=== PATIENT | female | born 1960 | race Caucasian/White ===

== ENCOUNTER 2020-12-20 15:19 | Emergency (ER) | payer MEDICARE, SELFPAY ==
[2020-12-20 15:22] VITALS: BP 101/62; PULSE 60; RESP 18; TEMP 35.4; O2SAT 94; BMI 49.1
--- NOTE | 2020-12-20 15:48 | CT_ITS ---
STUDY: CT ABDOMEN AND PELVIS WITHOUT CONTRAST REASON FOR EXAM: Female, 60 years old. FELL OFF TOILET, HIT SINK, LOW BACK PAIN. RADIATION DOSAGE (If Supplied By Facility): CTDIvol = ( 22.45 ) mGy, DLP = ( 1099.25 ) mGycm TECHNIQUE: Transaxial images were obtained from the dome of the diaphragm to the symphysis pubis without oral contrast, and without intravenous contrast. Sagittal and coronal images were reconstructed. Individualized dose optimization techniques were used for this CT. COMPARISON: None. FINDINGS: The visualized lung bases are unremarkable. The visualized portions of the heart are within normal limits. There is elongation of the right lobe of the liver which may be normal developmental variant. Attenuation is homogeneous without mass or bile duct dilatation. Gallbladder has been removed surgically.. Normal spleen. Normal pancreas. Normal bilateral adrenal glands. There is a tiny nonobstructing calculus in each kidney. No hydronephrosis or mass. Normal visualized stomach. Normal small intestine. Diffuse diverticular disease of the colon without evidence for acute diverticulitis. Appendix not visualized which may be consistent with prior appendectomy.. Minor atherosclerotic changes of the aorta without evidence for aneurysm. Normal inferior vena cava. Normal retroperitoneum. Normal urinary bladder. There is soft tissue swelling posterior to the spinous process of L2.. Lumbar spine demonstrates degenerative changes. No evidence for acute fracture. Postop change status post bilateral laminectomy and posterior fusion at L4-5 CT/Abdomen/Pelvis without Cont IMPRESSION: Soft tissue swelling in the back posterior to the spinous process of L2 Postsurgical changes at L4-5. Spondylosis of the lumbar spine without evidence for acute fracture Bilateral nephrolithiasis without evidence for hydronephrosis or ureteral calculus Diverticular disease of the colon without evidence for acute diverticulitis Status post cholecystectomy and appendectomy Electronically Signed: Pierre Mitchell MD at 16:54 EST , Service support ,
--- NOTE | 2020-12-20 15:52 | ED.DCSUM_ITS ---
- ER Visit Summary Date of Service: 12/20/20 Chief Complaint: Fall History of Present Illness: The patient is a 60 F who presents after a fall that occurred today. Patient states she was trying to step up onto her toilet seat to close a window. Patient states she is left and fell backwards. Patient states her back fell into the bathroom sink. Patient states her pain is worse with any movement. Patient states whenever she attempts to move she has spasms in her low back. Patient denies any paresthesias or weakness. Patient describes her pain as aching. Patient denies any head injury or loss of consciousness. Patient denies any pain in her extremities. Physical Examination: Vital signs are stable. Patient is afebrile. Patient is in no acute distress. Oral mucosa is pink and moist. Neck is supple. Trachea is midline. There is no JVD. Heart was regular rate and rhythm. Lungs are clear and equal bilaterally. Abdomen is soft. Bowel sounds are normal. There is mild tenderness over the flank areas bilaterally. There is no rebound or guarding noted. Musculoskeletal exam reveals tenderness over the lumbar paraspinal muscles. There is some mild midline tenderness. There is no bony crepitance or step-off. Range of motion was limited in all motion secondary to pain. Strength is 5/5 bilateral in the upper and lower extremities. There are no sensory deficits noted. Test Results: X-rays of the lumbar spine were obtained. There are 3 views. On my interpretation, there is no acute fracture or spondylolisthesis. There are degenerative changes noted. There are screws noted to be in place. There is no loosening or displacement of the screws. Radiologist also interpreted the x- rays and agrees. CBC was within normal limits. Comprehensive metabolic profile was within normal limits. CT scan of the abdomen and pelvis was obtained. There is soft tissue swelling posterior to the spinous process of L2. There is no acute fracture. There is bilateral nephrolithiasis but no ureteral calculus. There is diverticular disease but no evidence of diverticulitis. This was interpreted by the radiologist and reviewed by myself. Urinalysis was ordered and is pending. Emergency Department Course and Treatment: Patient was given a dose of morphine and Valium here. Patient was given prescriptions for [place] and Valium. Patient was instructed to use ice to the area. Patient was instructed to follow-up with her primary care physician in 5 to 7 days. Patient understood and was agreeable with the plan. All questions were answered. Disposition: Discharge home Impression: Lumbar contusion This note was generated with [employer] dictation software. It may contain incorrect words, spelling, and punctuation that were not noted in review of the chart prior to signing ED Disposition - Plan for ED Patient: Disposition: Home or Assisted Living Diagnosis: Lumbar contusion Instructions: ED Back Contusion Prescriptions: Hydrocodone Bitart/Apap 5-325 [[place] 5MG-325MG] 1 tab PO Q6H PRN PRN 3 Days #10 tab PRN Reason: Pain Prescription Printed Diazepam [Valium] 5 mg PO Q8 PRN #10 tab PRN Reason: Muscle Spasm Prescription Printed Referrals: Rome Shannon DO [Primary Care Provider] - 5-7 Days
[2020-12-20] MEDS: diazePAM 5 MG Tablet PO (16:04)
[2020-12-20] MEDS: Morphine 4 MG/ML Syringe IV ×2 (16:04→17:18)
[2020-12-20 16:23] LABS: Absolute Lymphocyte Count 1.87 X10^3/uL (0.83-4.51); Absolute Neutrophil Count 6.7 X10^3/uL (2.0-7.7); Basophil# 0.05 X10^3/uL; Basophil% 0.5 % (0-1); Eosinophil# 0.99 X10^3/uL; Eosinophils% 9.5 % (0-5); Hematocrit 45.4 % (37-47); Hemoglobin 14.8 g/dL (12.0-15.0); Lymphocyte # 1.87 X10^3/ul (4.0); Lymphocyte % 17.9 % (19-41); Mean Corp Hgb Conc 32.6 g/dL (32-36); Mean Corpuscular Volume 98.3 fL (81-99); Mean Platelet Vol. 11.4 fl (6.2-12.0); Monocyte# 0.79 X10^3/uL; Monocyte% 7.6 % (0-10); NRBC Flagged by Analyzer 0 % (0-5); Neutrophil # 6.67 X10^3/uL (2.7-7.7); POSITIVE MORPHOLOGY YES; Platelet Count 159 K/mm3 (150-450); RBC Distribution Width CV 13.3 % (11.6-14.6); RBC Distribution Width SD 48.4 fl (35.1-43.9); Red Blood Count 4.62 M/mm3 (4.2-5.4); White Blood Count 10.4 K/mm3 (4.4-11.0)
--- NOTE | 2020-12-20 16:23 | RAD_ITS ---
STUDY: X-RAY - LUMBAR SPINE REASON FOR EXAM: Female, 60 years old. Fall today. Low back pain. TECHNIQUE: 3 view(s) of the lumbar spine were obtained. COMPARISON: None FINDINGS: Normal lumbar lordosis. There is minor levo scoliosis. There is a normal alignment of the vertebrae. No evidence for acute fracture or subluxation. Postop changes status post bilateral posterior fusion at L4-5.. Mild multilevel disc space narrowing and endplate spurring. Vascular calcification noted without evidence for aortic aneurysm. Postsurgical changes status post cholecystectomy. RAD/Lumbar Spine 2 or 3 Views IMPRESSION: Degenerative changes and postsurgical changes at L4-5. Mild spondylosis. No acute fracture or subluxation Electronically Signed: Pierre Mitchell MD at 16:38 EST , Service support ,
[2020-12-20 16:24] LABS: Differential Indicated SCAN CRITERIA MET
[2020-12-20 16:43] LABS: Differential Comment SCANNED
[2020-12-20 16:48] LABS: ALB/GLOB Ratio 0.9 RATIO (0.9-2.4); AST(SGOT) 13 U/L (15-37); Alanine Aminotransfer ALT/SGPT 20 U/L (13-56); Albumin, Serum 3.3 g/dL (3.2-5.0); Alkaline Phosphatase 92 U/L (45-117); Anion Gap 4 (5-15); BUN 19 mg/dL (7-18); BUN/Creat Ratio 22.6 RATIO (10-20); Chloride 106 mmol/L (98-107); Creatinine, Serum 0.84 mg/dL (0.55-1.02); EST Glomerular Filtration Rate 73 mL/min (>60); Est Glom Filt Rate - Afr Amer 88 mL/min (>60); Globulin 3.6 g/dL (2.2-4.2); Glucose 210 mg/dL (74-106); Potassium 4.2 mmol/L (3.5-5.1); Protein, Total 6.9 g/dL (6.4-8.2); Sodium Level 139 mmol/L (136-145)
[2020-12-20 17:16] LABS: Bacteria 0 SEEN /hpf (None Seen); Mucous, Urine 0 SEEN /hpf (<or=2+); Red Blood Cells-Urine 0 SEEN /hpf (0-5); Squamous Epithelial Cells - UA 0 SEEN /hpf (5-10); White Blood Cells 0 SEEN /hpf (0-5)
[2020-12-20 17:24] LABS: Color, Urine Yellow (Yellow); Glucose, Dipstick Normal (Normal); Ketone-Dipstick Negative (Negative); Leukocyte Esterase-Dipstick Negative /ul (Negative); Nitrite-Dipstick Negative (Negative); Occult Blood-Urine Negative /ul (Negative); Protein-Dipstick Negative (Negative); Urine Bilirubin Dipstick Negative (Negative); Urine Clarity Clear (Clear); Urine Urobilinogen Normal (Normal)
[2020-12-20 18:05] VITALS: BP 127/68; PULSE 82; RESP 16; O2SAT 97
== END 2020-12-20 18:32 | disposition home or self-care (01) ==
LOC: ED 17:23
PROVIDERS: Emergency Provider Emergency Medicine; PCP Family Medicine
DX: S30.0XXA Contusion of lower back and pelvis, initial encounter (principal); F17.200 Nicotine dependence, unspecified, uncomplicated; I25.10 Atherosclerotic heart disease of native coronary artery without angina pectoris; W19.XXXA Unspecified fall, initial encounter
CPT/HCPCS: 72100; 74176; 80053; 81001; 85025; 96374; 96376; 99285; P9612; A4216

== ENCOUNTER 2021-04-18 10:48 | Emergency (ER) | payer MEDICARE, SELFPAY ==
[2021-04-18 10:49] VITALS: BP 127/70; PULSE 60; RESP 18; TEMP 35.6; O2SAT 95; BMI 47.9
--- NOTE | 2021-04-18 11:40 | RAD_ITS ---
STUDY: X-RAY - LEFT HAND, ATTENTION FINGER REASON FOR EXAM: Female, 60 years old. Injury/Pain TECHNIQUE: view(s) of the finger were obtained. COMPARISON: None. FINDINGS: There is no evidence of osseous or articular abnormality. There is soft tissue laceration the at the level of the middlel phalanx. RAD/Finger(s) Min 2 Views IMPRESSION: Soft tissue laceration at the level of the middle phalanx. Electronically Signed: Nyasia Villalpando, at 11:57 EDT Tel , Service support ,
--- NOTE | 2021-04-18 12:57 | ED.RN ---
PTS DAUGHTER CAME TO THE NURSES STATION REQUESTING TO TALK TO NURSE OR . THIS NURSE WENT TO THE ROOM AND CHECKED ON PT. PT REQUESTED A BLANKET WHICH WAS GIVEN. DAUGHTER THEN VERBALIZED CONCERN THAT THE HOSPITAL IS DIRTY AND HER MOMS FINGER WILL GET INFECTED BECAUSE SHE HAS BEEN WAITING FOR 2 HRS. EXPLAINED THE CHANCES OF INFECTION FROM SITTING IN HER ROOM AR SLIM AND PT HAS MORE CHANCE OF A INFECTION FROM THE DOG CHAIN THAT CAUSED THE LAC. DAUGHTER THEN STATED THAT SHE WOULD HAVE BEEN SEEN SOONER IF SHE CAME IN BY EMT/EMS. EXPLAINED THAT THE PT WAS SEEN AND COMING IN BY [facility] DOES NOT GUARANTEE BEING SEEN ANY SOONER. EXPLAINED PTS THAT ARE SICKER WILL BE SEEN FIRST AND MANY TIMES SQUADS GO TO THE TRIAGE/WAITING ROOM BECAUSE THE ER IS FULL IT IS TODAY. PT VERBALIZED UNDERSTANDING. DAUGHTER DOES NOT APPEAR HAPPY WITH THE RESPONSES GIVEN.
--- NOTE | 2021-04-18 13:00 | EX.ED.GENINJ ---
HPI History of Present Illness Chief Complaint: Laceration Informant: patient Onset/Context/Timing Onset: Hours Mechanism/Context: Blunt Injury (Dog chain wrapped around her finger) Current Severity: Mild Maximum Severity: Severe Worsened by: Injury Relieved by: Nothing Associated Symptoms Associated Symptoms: Positive for Parasthesias; Negative for Weakness and Loss of function Narrative Narrative: Patient is a 60-year-old fl[place]p-lofy-[place]it[place] woman who presents with injury to her left index finger at the PIP joint. She states the dog chain wrapped on her finger causing blunt injury and tear. She complains of tingling of her index finger. Tetanus is unknown. She has allergies to penicillin. She has no other complaints. Tetanus Immunization: Unknown Prior similar symptoms: No Recent Illness/Hospitalization: No PFSH PFSH Medical History COPD (chronic obstructive pulmonary disease) Depression Diabetes Hypertension Myocardial infarct Presence of combination internal cardiac defibrillator (ICD) and pacemaker Home Medications diazepam 5 mg PO Q8 PRN #10 tab 12/20/20 [Rx Last Taken Unknown] citalopram 20 mg PO DAILY 04/18/21 [History Last Taken Unknown] clindamycin HCl [Cleocin HCl] 300 mg PO Q6H #16 capsule 04/18/21 [Rx Last Taken Unknown] clopidogrel 75 mg PO DAILY 04/18/21 [History Last Taken Unknown] ezetimibe 10 mg PO DAILY 04/18/21 [History Last Taken Unknown] famotidine 20 mg PO DAILY 04/18/21 [History Last Taken Unknown] furosemide 40 mg PO DAILY 04/18/21 [History Last Taken Unknown] glimepiride 4 mg PO DAILY 04/18/21 [History Last Taken Unknown] hydrocodone-acetaminophen 1 tab PO Q8 PRN 04/18/21 [History Last Taken Unknown] isosorbide mononitrate 30 mg PO DAILY 04/18/21 [History Last Taken Unknown] metoprolol tartrate 25 mg PO BID 04/18/21 [History Last Taken Unknown] nabumetone 750 mg PO BID 04/18/21 [History Last Taken Unknown] nitroglycerin 0.4 mg SUBLINGUAL X1 PRN 04/18/21 [History Last Taken Unknown] potassium chloride 10 meq PO BID 04/18/21 [History Last Taken Unknown] simvastatin 80 mg PO DAILY 04/18/21 [History Last Taken Unknown] sitagliptin [Januvia] 100 mg PO DAILY 04/18/21 [History Last Taken Unknown] spironolactone 25 mg PO DAILY 04/18/21 [History Last Taken Unknown] Allergy/AdvReac Type Severity Reaction Status Date / Time ciprofloxacin [From Cipro] Allergy Itching Verified 04/18/21 10:49 Penicillins [PCN] Allergy Hives Verified 04/18/21 10:49 Surgical History History of coronary artery stent placement Social History (Updated 04/18/21 @ 13:[address] Harry Lo MD) leisure activities: other Smoking Status: Current every day smoker tobacco type: cigarettes alcohol intake: current alcohol intake frequency: other substance use type: does not use ROS ROS ED Constitutional Constitutional ED: Denies chills, fever(s), subjective or sweats Cardiovascular Cardiovascular: Denies chest pain Respiratory/Chest Respiratory/Chest: Denies cough or dyspnea Gastrointestinal Gastrointestinal: Denies nausea or vomiting Neurologic Neurologic: Reports paresthesias; Denies headache(s) or weakness Hematologic/Lymphatic Hematologic/Lymphatic: Denies easy bleeding or easy bruising EXAM Physical Exam Const Vital Signs: 04/18/21 10:49 Temperature 96.0 F L Temperature Source Temporal Pulse Rate 60 Respiratory Rate 18 Blood Pressure 127/70 H Blood Pressure Mean 89 Pulse Ox 95 Oxygen Delivery Method Room Air Positive well nourished, well developed and obese General Appearance ED: well developed Nutritional Appearance: obese HEENT HEENT Narrative: There is no evidence of facial or head trauma. Nares patent. Posterior pharynx unremarkable. Ears normal. atraumatic Eyes PERRL and EOMs intact bilaterally Neck full ROM Chest Wall inspection of chest normal Resp normal respiratory effort Cardio regular rhythm Rate: regular rate Extremity full ROM; Negative for normal to inspection Extremity Narrative: There is a laceration volar side of the left index finger over the PIP joint. Capillary refill is normal. The flexor digitorum superficialis and flexor digitorum profundus are intact. The extensor mechanism is noted. There is abnormal two-point discrimination on the ulnar side distal to the laceration. Two-point discrimination is normal on the radial side. There is no subungual hematoma noted. General Extremety ED: Yes tenderness; Negative for deformity or edema General Extremity: Negative for deformity or edema Neuro oriented x3 and CN's II-XII intact bilaterally Sensorium / Orientation: alert Sensory Exam: other Median, radial and ulnar function intact Psych mental status grossly normal Skin Wounds: wounds noted size Size: Laceration is 2.8 cm PROC Procedures Other Procedures Procedure(s): And X finger was anesthetized by local infiltration. The laceration was irrigated with 200 cc of normal saline. 7 simple interrupted sutures was placed. 5-0 Ethilon was used. Patient tolerated procedure well. MDM MDM MDM Narrative Medical decision making narrative: X-ray of the finger was obtained to evaluate for fracture. Also to rule out foreign body. Per my read the three-view x-ray of the finger reveals no foreign body, subluxation, dislocation or fracture. There is soft tissue defect noted. Radiography Diagnostic Testing: Radiology Impression Finger X-Ray 04/18/21 11:40 IMPRESSION: Soft tissue laceration at the level of the middle phalanx. Electronically Signed: Nyasia Hernándezignacia, at 11:57 EDT Tel , Service support , Discharge Plan Triage Chief Complaint: Laceration ED Provider: Harry Lo Dx/Rx/DC Orders Clinical Impression: Laceration of finger of left hand with complication Prescriptions: New clindamycin HCl [Cleocin HCl] 300 MG capsule 300 mg PO Q6H Qty: 16 RF: 0 No Action diazepam 5 MG tablet 5 mg PO Q8 PRN (Reason: Muscle Spasm) Qty: 10 RF: 0 furosemide 40 mg tablet 40 mg PO DAILY RF: 0 nabumetone 750 mg tablet 750 mg PO BID RF: 0 isosorbide mononitrate 30 mg tablet extended release 24 hr 30 mg PO DAILY RF: 0 potassium chloride 10 mEq tablet extended release 10 meq PO BID RF: 0 clopidogrel 75 mg tablet 75 mg PO DAILY RF: 0 simvastatin 80 mg tablet 80 mg PO DAILY RF: 0 spironolactone 25 mg tablet 25 mg PO DAILY RF: 0 citalopram 20 mg tablet 20 mg PO DAILY RF: 0 famotidine 20 mg tablet 20 mg PO DAILY RF: 0 hydrocodone-acetaminophen 7.5-325 mg tablet 1 tab PO Q8 PRN (Reason: Pain) RF: 0 glimepiride 4 mg tablet 4 mg PO DAILY RF: 0 nitroglycerin 0.4 mg tablet, sublingual 0.4 mg sublingual X1 PRN (Reason: Chest Pain) RF: 0 ezetimibe 10 mg tablet 10 mg PO DAILY RF: 0 metoprolol tartrate 25 mg tablet 25 mg PO BID RF: 0 Januvia 100 mg tablet 100 mg PO DAILY RF: 0 Primary Care Provider: Rome Shannon Referrals: Sabino Causey MD [STAFF PHYSICIAN] - 2 Days for wound check Rome Shannon DO [Primary Care Provider] - Activity Restrictions/Additional Instructions: 1. Keep dressing on for 24 hours 2. Change dressing every 8 to 12 hours 3. Keep dressing clean and dry Disposition Disposition: Home, self care
[2021-04-18] MEDS: Clindamycin HCl 150 MG Capsule 300 MG PO (14:51)
== END 2021-04-18 15:02 | disposition home or self-care (01) ==
PROVIDERS: Emergency Provider Emergency Medicine; PCP Family Medicine
DX: S61.211A Laceration without foreign body of left index finger without damage to nail, initial encounter (principal); F17.210 Nicotine dependence, cigarettes, uncomplicated; E11.9 Type 2 diabetes mellitus without complications; I10 Essential (primary) hypertension; Z95.810 Presence of automatic (implantable) cardiac defibrillator; Z79.899 Other long term (current) drug therapy; Z79.84 Long term (current) use of oral hypoglycemic drugs; X58.XXXA Exposure to other specified factors, initial encounter
CPT/HCPCS: 12002; 73140; 99284

== ENCOUNTER 2021-05-01 10:56 | Observation (INO) | payer MEDICARE, SELFPAY ==
[2021-05-01] VITALS (16 sets, daily range): BP systolic 117–147; BP diastolic 52–82; PULSE 60–82; RESP 16–27; TEMP 37.1–37.4; O2SAT 88–94; BMI 44.9; BMI 47.0
--- NOTE | 2021-05-01 11:21 | EKG12_ITS ---
Test Reason : SOB Blood Pressure : / mmHG Vent. Rate : 064 BPM Atrial Rate : 064 BPM P-R Int : 130 ms QRS Dur : 098 ms QT Int : 462 ms P-R-T Axes : 063 079 059 degrees QTc Int : 476 ms Normal sinus rhythm Nonspecific T wave abnormality Abnormal ECG Confirmed by JOSUE FERNANDEZ, HANS ([id number]), story editor CHIDI CALVO ([id number]) on 05/04/2021 1:20:29 PM Referred By: SAIMA Confirmed By:HANS SALAS MD
--- NOTE | 2021-05-01 11:23 | ED.VIS.DYS ---
HPI History of Present Illness Chief Complaint: Shortness of Breath Informant: patient Narrative Narrative: Patient is a 60-year-old female with a past medical history of CHF, CAD, COPD who presents to the emergency department for shortness of breath. She states that this started earlier this morning. She has had a mild cough. She states that is productive every morning which does not seem to be much different than normal. She denies any fevers but has had chills. She denies having chest pain associated with this. She feels like she is hyperventilating. She denies any leg swelling or calf pain. She did have a recent hand surgery this past Sunday. She denies any history of DVT/PE. No known sick contacts. She has been vaccinated for Covid. She denies any abdominal pain or nausea/vomiting/diarrhea. Patient is still a smoker. She does not have breathing treatments at home. [facility] Medical History COPD (chronic obstructive pulmonary disease) Depression Diabetes Hypertension Myocardial infarct Home Medications citalopram 20 mg PO DAILY 04/18/21 [History Last Taken 04/30/21] clopidogrel 75 mg PO DAILY 04/18/21 [History Last Taken 04/30/21] ezetimibe [Zetia] 10 mg PO DAILY 04/18/21 [History Last Taken 04/30/21] famotidine 20 mg PO BID 04/18/21 [History Last Taken 04/30/21] furosemide 40 mg PO DAILY 04/18/21 [History Last Taken 04/30/21] glimepiride 4 mg PO BID 04/18/21 [History Last Taken 04/30/21] hydrocodone-acetaminophen 1 tab PO Q8 PRN 04/18/21 [History Last Taken 04/28/21] metoprolol tartrate 25 mg PO BID 04/18/21 [History Last Taken 04/30/21] nabumetone 750 mg PO BID 04/18/21 [History Last Taken 04/30/21] nitroglycerin 0.4 mg SUBLINGUAL X1 PRN 04/18/21 [History Last Taken Unknown] potassium chloride 10 meq PO BID 04/18/21 [History Last Taken 04/30/21] sitagliptin [Januvia] 100 mg PO DAILY 04/18/21 [History Last Taken 04/30/21] spironolactone 25 mg PO DAILY 04/18/21 [History Last Taken 04/30/21] citalopram 10 mg PO DAILY 05/01/21 [History Last Taken 04/30/21] ondansetron [Zofran ODT] 4 mg PO Q6H PRN 05/01/21 [History Last Taken 04/30/21] oxycodone-acetaminophen 1 tab PO Q4H PRN 05/01/21 [History Last Taken 05/01/21] rosuvastatin 40 mg PO DAILY 05/01/21 [History Last Taken 04/30/21] sulfamethoxazole-trimethoprim [Bactrim DS] 1 tab PO BID 05/01/21 [History Last Taken 04/30/21] Allergy/AdvReac Type Severity Reaction Status Date / Time ciprofloxacin [From Cipro] Allergy Itching Verified 05/01/21 10:59 Penicillins [PCN] Allergy Hives Verified 05/01/21 10:59 Family History Mother Heart disease Father Heart disease Surgical History History of coronary artery stent placement Presence of combination internal cardiac defibrillator (ICD) and pacemaker Social History leisure activities: other Smoking Status: Current every day smoker tobacco type: cigarettes alcohol intake: current alcohol intake frequency: other substance use type: does not use ROS ROS ED Constitutional Constitutional ED: Reports chills; Denies fever(s) Eyes Eyes: Denies change in vision ENT ENT ED: Denies epistaxis or rhinorrhea Cardiovascular Cardiovascular: Denies chest pain or palpitations Respiratory/Chest Respiratory/Chest: Reports cough, dyspnea and sputum Gastrointestinal Gastrointestinal: Denies abdominal pain, diarrhea, nausea or vomiting Genitourinary Genitourinary ED: Denies dysuria, hematuria or urinary frequency Musculoskeletal Musculoskeletal: Denies back pain or neck pain Integumentary Denies rash Neurologic Neurologic: Denies dizziness, headache(s) or weakness EXAM Physical Exam Const Vital Signs: 05/01/21 10:57 05/01/21 11:38 05/01/21 11:46 Temperature 98.9 F 99.4 F H Temperature Source Temporal Temporal Pulse Rate 66 70 67 Respiratory Rate 22 H 18 26 H Respiratory Effort Respiratory Depth Respiratory Pattern Blood Pressure 147/67 H 143/64 H Blood Pressure Mean 93 90 Blood Pressure Source Blood Pressure Position Blood Pressure Location Pulse Ox 92 94 Oxygen Delivery Method Room Air Nasal Cannula Oxygen Flow Rate (L/min) 2 05/01/21 12:07 05/01/21 12:09 05/01/21 12:46 Temperature 99.4 F H 99.0 F Temperature Source Temporal Temporal Pulse Rate 82 66 Respiratory Rate 27 H 24 H Respiratory Effort Short of Breath Labored Respiratory Depth Normal Respiratory Pattern Tachypnea Blood Pressure 134/82 H 145/68 H Blood Pressure Mean 99 93 Blood Pressure Source Blood Pressure Position Blood Pressure Location Pulse Ox 94 94 Oxygen Delivery Method Nasal Cannula Nasal Cannula Nasal Cannula Oxygen Flow Rate (L/min) 2.5 2 2 05/01/21 14:28 05/01/21 14:30 05/01/21 15:03 Temperature 99.3 F H 99.3 F H Temperature Source Temporal Temporal Pulse Rate 60 60 64 Respiratory Rate 18 18 Respiratory Effort Respiratory Depth Respiratory Pattern Blood Pressure 117/55 L 117/55 L Blood Pressure Mean 75 75 Blood Pressure Source Blood Pressure Position Blood Pressure Location Pulse Ox 92 92 Oxygen Delivery Method Nasal Cannula Nasal Cannula Oxygen Flow Rate (L/min) 2 2 05/01/21 15:08 05/01/21 15:35 05/01/21 15:36 Temperature 98.9 F Temperature Source Oral Pulse Rate 60 60 Respiratory Rate 18 16 Respiratory Effort Normal Labored Respiratory Depth Normal Respiratory Pattern Normal Normal Blood Pressure 138/60 H Blood Pressure Mean 86 Blood Pressure Source Monitor Blood Pressure Position Semi-Fowlers Blood Pressure Location Right Arm Pulse Ox 93 91 Oxygen Delivery Method Nasal Cannula Nasal Cannula Nasal Cannula Oxygen Flow Rate (L/min) 2 2 2 Positive well nourished and well developed General Appearance ED: well developed and NAD HEENT Reports normocephalic, head/scalp atraumatic and moist mucous membranes Eyes PERRL and EOMs intact bilaterally Neck supple General: Negative for tenderness Chest Wall inspection of chest normal Resp Resp Narrative: Tachypneic, increased work of breathing, accessory muscle use. Able to speak in few word sentences. Has wheezing and decreased breath sounds throughout. Cardio regular rate, regular rhythm and no murmurs GI normal to inspection, nondistended, normoactive bowel sounds and non-tender Palpation: soft; Negative for guarding or rebound tenderness present Back/Spine no CVA tenderness Extremity normal to inspection Extremity Narrative: Trace edema bilateral lower extremities. General Extremety ED: Negative for tenderness Neuro oriented x3, CN's II-XII intact bilaterally and no sensory deficits noted Sensorium / Orientation: alert Motor Exam: strength 5/5 throughout Psych mental status grossly normal Skin no rashes or lesions noted MDM MDM MDM Narrative Medical decision making narrative: Patient presents to the ED for shortness of breath that started this morning. She states she has had a mild cough. On arrival to the emerge department she is satting 92% on room air but does have increased work of breathing. With the wheezing and decreased breath sounds she started on a DuoNeb. She does have a history of COPD. Will check basic lab work, chest x-ray and EKG. Patient's x-ray did show some vascular congestion. No obvious pneumonia. Patient desaturates very rapidly even when moving in bed. Her BNP is mildly elevated. Troponin within normal limits. She is not anemic. She does have a mild leukocytosis. Patient given first dose of Lasix here in the ED. Will bring into the hospital given her hypoxia and requiring supplemental oxygen. She understands and is agreeable with plan. She otherwise has remained stable throughout ED stay. Clinical impression: #1 acute CHF exacerbation #2 hypoxia Lab Data Labs: Laboratory Results - last 24 hr 05/01/21 05/01/21 05/01/21 11:50 11:50 11:50 WBC 13.8 H RBC 4.60 Hgb 14.6 Hct 44.9 MCV 97.6 MCH 31.7 MCHC 32.5 RDW Std Deviation 47.2 H RDW Coeff of Jyoti 13.2 Plt Count 126 L MPV 11.6 Immature Gran % (Auto) 0.500 Neut % (Auto) 66.8 Lymph % (Auto) 21.3 [place] % (Auto) 11.0 H Eos % (Auto) 0.0 Baso % (Auto) 0.4 Absolute Neuts (auto) 9.2 H Absolute Lymphs (auto) 2.93 Nucleated RBC % 0 Diff Path Review May foll Atypical Lymphocytes 1+ Sodium 138 Potassium 3.5 Chloride 100 Carbon Dioxide 32.0 Anion Gap 6 BUN 18 Creatinine 0.73 Estim Creat Clear Calc 60.30 Est GFR (MDRD) Af Amer 104 Est GFR (MDRD) Non-Af 86 BUN/Creatinine Ratio 24.7 H Glucose 160 H Calcium 8.8 Troponin I High Sens 18.6 B-Natriuretic Peptide 233.4 H POC Glucose 05/01/21 05/01/21 05/01/21 15:34 17:12 17:54 WBC RBC Hgb Hct MCV MCH MCHC RDW Std Deviation RDW Coeff of Jyoti Plt Count MPV Immature Gran % (Auto) Neut % (Auto) Lymph % (Auto) [place] % (Auto) Eos % (Auto) Baso % (Auto) Absolute Neuts (auto) Absolute Lymphs (auto) Nucleated RBC % Diff Path Review Atypical Lymphocytes Sodium Potassium Chloride Carbon Dioxide Anion Gap BUN Creatinine Estim Creat Clear Calc Est GFR (MDRD) Af Amer Est GFR (MDRD) Non-Af BUN/Creatinine Ratio Glucose Calcium Troponin I High Sens 20.8 17.3 B-Natriuretic Peptide POC Glucose 168 H Radiography Diagnostic Testing: Radiology Impression Chest X-Ray 05/01/21 12:05 IMPRESSION: With mild cardiomegaly with mild pulmonary vascular congestion and likely basilar interstitial edema, clinically correlate. Electronically Signed: Aramis Martinez DO at 12:52 EDT , Service support , Chest x-ray interpretation. Mild pulmonary vascular congestion. No obvious pneumonia. EKG Initial EKG: Attestation: I personally reviewed and interpreted this EKG as follows: (Rate of 64 bpm and normal sinus rhythm. Normal intervals. Normal axis. No significant ST elevations or depressions. No T wave abnormalities.) Discharge Plan Disposition Disposition: Acute Care Hospital [facility] Discharge Date/Time: 05/01/21 14:58
[2021-05-01] MEDS: Ipratropium/Albuterol Sulfate 3 ML AMPUL.NEB INHALATION ×3 (11:38→19:57)
[2021-05-01 12:02] LABS: Absolute Lymphocyte Count 2.93 X10^3/uL (0.83-4.51); Absolute Neutrophil Count 9.2 X10^3/uL (2.0-7.7); Basophil# 0.06 X10^3/uL; Basophil% 0.4 % (0-1); Differential Indicated SCAN CRITERIA MET; Hematocrit 44.9 % (37-47); Hemoglobin 14.6 g/dL (12.0-15.0); Lymphocyte # 2.93 X10^3/ul (0.83-4.51); Lymphocyte % 21.3 % (19-41); Mean Corp Hgb Conc 32.5 g/dL (32-36); Mean Corpuscular Hgb 31.7 pg (27.0-32.0); Mean Corpuscular Volume 97.6 fL (81-99); Mean Platelet Vol. 11.6 fl (6.2-12.0); Monocyte# 1.51 X10^3/uL; NRBC Flagged by Analyzer 0 % (0-5); Neutrophil # 9.18 X10^3/uL (2.7-7.7); Neutrophil % 66.8 % (47-70); POSITIVE DIFFERENTIAL YES; Platelet Count 126 K/mm3 (150-450); RBC Distribution Width CV 13.2 % (11.6-14.6); RBC Distribution Width SD 47.2 fl (35.1-43.9); White Blood Count 13.8 K/mm3 (4.4-11.0)
--- NOTE | 2021-05-01 12:05 | RAD_ITS ---
STUDY: X-RAY CHEST REASON FOR EXAM: Female, 60 years old. chest pain TECHNIQUE: Single AP portable view of the chest. COMPARISON: None. FINDINGS: Left pacer in place with leads overlying the right atrium and right ventricle. Mild prominent pulmonary vasculature and interstitial markings of the lung bases are present. There is no demonstrated pleural abnormality. There is mild cardiac enlargement. Normal mediastinum and terrence. Mild prominent pulmonary vasculature. Normal visualized aortic arch and descending thoracic aorta. Normal visualized thoracic spine. Normal visualized ribs, clavicles, and shoulders. There is no demonstrated abnormality of the visualized soft tissue structures of the upper abdomen. RAD/Chest 1 View (Portable) IMPRESSION: With mild cardiomegaly with mild pulmonary vascular congestion and likely basilar interstitial edema, clinically correlate. Electronically Signed: Aramis Martinez DO at 12:52 EDT , Service support ,
[2021-05-01 12:19] LABS: BNP,B-Type NATRIURETIC PEPTIDE 233.4 pg/mL (0-100)
[2021-05-01 12:21] LABS: Anion Gap 6 (5-15); BUN 18 mg/dL (7-18); BUN/Creat Ratio 24.7 RATIO (10-20); Calcium,Total 8.8 mg/dL (8.5-10.1); Chloride 100 mmol/L (98-107); Creatinine, Serum 0.73 mg/dL (0.55-1.02); EST Glomerular Filtration Rate 86 mL/min (>60); Est Glom Filt Rate - Afr Amer 104 mL/min (>60); Glucose 160 mg/dL (74-106); Potassium 3.5 mmol/L (3.5-5.1); Sodium Level 138 mmol/L (136-145); Troponin-I HS 18.6 pg/mL (3.0-53.7)
[2021-05-01 12:24] LABS: Atypical Lymphocyte 1+ %
[2021-05-01] MEDS: Acetaminophen 325 MG Tablet PO (12:45)
--- NOTE | 2021-05-01 12:46 | ED.RN ---
while pt was moving herself up in bed on room air pt's spo2 droped to mid 70's with good waveform. pt placed on [address] alba notified.
[2021-05-01] MEDS: Furosemide 40 MG/4 ML Vial IV ×2 (14:27→22:28)
--- NOTE | 2021-05-01 14:45 | PCM.HP.STD ---
Documented by User: Maricruz Lopes NP, [employer] 05/01/21 15:09 HPI - General General Date of Admission: 05/01/21 HPI Narrative ABUNDIO SCHULTE, is a 60 F who presents to the emergency room due to shortness of breath. Patient states shortness of breath began around 5 AM this morning. She reports productive cough which is fairly common for her. Also reports low-grade fever which began this morning. Denies weight gain or increased swelling. Patient has a bandage on her left hand/wrist and states she underwent an injury of her left index finger 04/18/2021 where dog chain wrapped around her finger causing a laceration. On 04/29/2021 she further underwent surgery for tendon repair at [facility] which was an outpatient procedure. She was placed on Bactrim following surgery. She denies exposure to sick contacts. Denies chest pain. Denies other symptoms or complaints. Patient reports she follows with Dr. Millan, cardiology in [place] for history of CAD with stents, heart failure of unknown subtype and arrhythmia status post AICD. She denies recent echocardiogram or cardiac evaluation. Her other past medical history includes type 2 diabetes mellitus, chronic back pain, depression, COPD, tobacco dependence. [facility] Medical History COPD (chronic obstructive pulmonary disease) Depression Diabetes Hypertension Myocardial infarct Home Medications citalopram 20 mg PO DAILY 04/18/21 [History Last Taken 04/30/21] clopidogrel 75 mg PO DAILY 04/18/21 [History Last Taken 04/30/21] ezetimibe [Zetia] 10 mg PO DAILY 04/18/21 [History Last Taken 04/30/21] famotidine 20 mg PO BID 04/18/21 [History Last Taken 04/30/21] furosemide 40 mg PO DAILY 04/18/21 [History Last Taken 04/30/21] glimepiride 4 mg PO BID 04/18/21 [History Last Taken 04/30/21] hydrocodone-acetaminophen 1 tab PO Q8 PRN 04/18/21 [History Last Taken 04/28/21] metoprolol tartrate 25 mg PO BID 04/18/21 [History Last Taken 04/30/21] nabumetone 750 mg PO BID 04/18/21 [History Last Taken 04/30/21] nitroglycerin 0.4 mg SUBLINGUAL X1 PRN 04/18/21 [History Last Taken Unknown] potassium chloride 10 meq PO BID 04/18/21 [History Last Taken 04/30/21] sitagliptin [Januvia] 100 mg PO DAILY 04/18/21 [History Last Taken 04/30/21] spironolactone 25 mg PO DAILY 04/18/21 [History Last Taken 04/30/21] citalopram 10 mg PO DAILY 05/01/21 [History Last Taken 04/30/21] ondansetron [Zofran ODT] 4 mg PO Q6H PRN 05/01/21 [History Last Taken 04/30/21] oxycodone-acetaminophen 1 tab PO Q4H PRN 05/01/21 [History Last Taken 05/01/21] rosuvastatin 40 mg PO DAILY 05/01/21 [History Last Taken 04/30/21] sulfamethoxazole-trimethoprim [Bactrim DS] 1 tab PO BID 05/01/21 [History Last Taken 04/30/21] Allergy/AdvReac Type Severity Reaction Status Date / Time ciprofloxacin [From Cipro] Allergy Itching Verified 05/01/21 10:59 Penicillins [PCN] Allergy Hives Verified 05/01/21 10:59 Family History Mother Heart disease Father Heart disease Surgical History History of coronary artery stent placement Presence of combination internal cardiac defibrillator (ICD) and pacemaker Social History leisure activities: other Smoking Status: Current every day smoker tobacco type: cigarettes alcohol intake: current alcohol intake frequency: other substance use type: does not use ROS Constitutional Constitutional: Denies change in weight, chills, fatigue, fever(s) or weakness Cardiovascular Cardiovascular: Denies chest pain, edema, lightheadedness, palpitations or syncope Respiratory/Chest Respiratory/Chest: Reports cough, dyspnea, productive cough and wheezing; Denies shortness of breath at rest Gastrointestinal Gastrointestinal: Denies abdominal pain, constipation, diarrhea, nausea or vomiting Genitourinary Genitourinary: Denies burning urination, difficulty urinating, dysuria, hematuria, urinary frequency, urinary incontinence or urinary urgency Musculoskeletal Musculoskeletal: Reports other Details: left hand pain- recent left index finger tendon repair ; Denies back pain, joint pain or muscle weakness Integumentary Integumentary: Denies erythema, lesions, rash or wounds Neurologic Neurologic: Denies abnormal speech, confusion, dizziness, focal weakness, numbness, paresthesias, seizure-like activity or syncope Psychiatric Psychiatric: Denies anxiety or depression Hematologic/Lymphatic Hematologic/Lymphatic: Denies anemia, easy bleeding or easy bruising Allergic/Immunologic Allergic/Immunologic: Denies hives or asthma Vital Signs Vital Signs Vital Signs: 05/01/21 10:57 05/01/21 11:38 05/01/21 11:46 Temperature 98.9 F 99.4 F H Temperature Source Temporal Temporal Pulse Rate 66 70 67 Respiratory Rate 22 H 18 26 H Respiratory Effort Respiratory Depth Respiratory Pattern Blood Pressure 147/67 H 143/64 H Blood Pressure Mean 93 90 Pulse Ox 92 94 Oxygen Delivery Method Room Air Nasal Cannula Oxygen Flow Rate (L/min) 2 05/01/21 12:07 05/01/21 12:09 05/01/21 12:46 Temperature 99.4 F H 99.0 F Temperature Source Temporal Temporal Pulse Rate 82 66 Respiratory Rate 27 H 24 H Respiratory Effort Short of Breath Labored Respiratory Depth Normal Respiratory Pattern Tachypnea Blood Pressure 134/82 H 145/68 H Blood Pressure Mean 99 93 Pulse Ox 94 94 Oxygen Delivery Method Nasal Cannula Nasal Cannula Nasal Cannula Oxygen Flow Rate (L/min) 2.5 2 2 05/01/21 14:28 05/01/21 14:30 Temperature 99.3 F H 99.3 F H Temperature Source Temporal Temporal Pulse Rate 60 60 Respiratory Rate 18 18 Respiratory Effort Respiratory Depth Respiratory Pattern Blood Pressure 117/55 L 117/55 L Blood Pressure Mean 75 75 Pulse Ox 92 92 Oxygen Delivery Method Nasal Cannula Nasal Cannula Oxygen Flow Rate (L/min) 2 2 Weight Weight: 238 lb 1.588 oz Body Mass Index (BMI) 44.9 Physical Exam Const alert, oriented x3 and no apparent distress Orientation / Consciousness: awake, oriented to person, oriented to place and oriented to time HEENT normocephalic and moist oral mucous membranes Eyes PERRL, EOMs intact bilaterally and conjunctivae normal Neck no lymphadenopathy Resp Auscultation: wheezes and diminished lung sounds Cardio regular rate, regular rhythm and no murmurs Peripheral Pulses: pulses 2+ throughout GI normal to inspection, nondistended, normoactive bowel sounds, non-tender and non-distended Extremity normal to inspection Extremity Narrative: Left hand post-op dressing intact Skin no rashes or lesions noted Lesions: no lesions Rashes: no rashes Trauma: no lacerations or abrasions Neuro CN's II-XII intact bilaterally, no focal motor deficits, no sensory deficits noted and deep tendon reflexes 2+ bilaterally Psych mental status grossly normal and affect normal Results Lab / Micro Data Result Diagrams: 05/01/21 11:50 05/01/21 11:50 Labs: Laboratory Results - last 24 hr 05/01/21 05/01/21 05/01/21 11:50 11:50 11:50 WBC 13.8 H RBC 4.60 Hgb 14.6 Hct 44.9 MCV 97.6 MCH 31.7 MCHC 32.5 RDW Std Deviation 47.2 H RDW Coeff of Jyoti 13.2 Plt Count 126 L MPV 11.6 Immature Gran % (Auto) 0.500 Neut % (Auto) 66.8 Lymph % (Auto) 21.3 [place] % (Auto) 11.0 H Eos % (Auto) 0.0 Baso % (Auto) 0.4 Absolute Neuts (auto) 9.2 H Absolute Lymphs (auto) 2.93 Nucleated RBC % 0 Diff Path Review May foll Atypical Lymphocytes 1+ Sodium 138 Potassium 3.5 Chloride 100 Carbon Dioxide 32.0 Anion Gap 6 BUN 18 Creatinine 0.73 Estim Creat Clear Calc 60.30 Est GFR (MDRD) Af Amer 104 Est GFR (MDRD) Non-Af 86 BUN/Creatinine Ratio 24.7 H Glucose 160 H Calcium 8.8 Troponin I High Sens 18.6 B-Natriuretic Peptide 233.4 H Micro: Microbiology 05/01/21 11:45 SARS-CoV-2 Antigen (Rapid) - Final Mucosa - Nose Radiology Impression Chest X-Ray 05/01/21 12:05 IMPRESSION: With mild cardiomegaly with mild pulmonary vascular congestion and likely basilar interstitial edema, clinically correlate. Electronically Signed: Aramis Martinez DO at 12:52 EDT , Service support , Assessment & Plan Assessment/Plan (1) COPD (chronic obstructive pulmonary disease): PLAN: 1. Shortness of breath, secondary to acute heart failure and exacerbation of COPD-placed on 2 L nasal cannula however not noted to be hypoxic. Wean oxygen as tolerated. Treatment per below. 2. Acute heart failure, unknown subtype-patient reports a history of heart failure with no recent echo. Does not know EF. Chest x-ray consistent with congestion. BNP 233. IV Lasix. Strict I&O. Daily weight. Obtain echo. 3. COPD with exacerbation-patient with significant wheezing on assessment. Low-grade fever. Check respiratory panel. IV Solu-Medrol. Albuterol and DuoNeb aerosols. 4. CAD with history of stents- follows with Dr. Millan, cardiology in [place] 5. S/P AICD- patient states secondary to arrhythmia. 6. Type 2 diabetes [id number] with sliding scale insulin. Continue glimepiride. 7. Chronic back pain-as needed pain regimen. 8. Recent left index tendon repair surgery secondary to injury-on Bactrim postoperatively. 9. Depression-on citalopram. 10. Tobacco dependence-current pack per day smoker. Encouraged cessation. Nicotine replacement patch. 11. Morbid obesity-encouraged diet and lifestyle modifications. DVT prophylaxis-Lovenox subcu This patient was seen by EMIGDIO Catherine under the supervision of Dr. Hopkins. Documented by User: Dr. Rolly Hopkins DO 05/01/21 17:57 HPI - General General Date of Admission: 05/01/21 [facility] Medical History COPD (chronic obstructive pulmonary disease) Depression Diabetes Hypertension Myocardial infarct Home Medications citalopram 20 mg PO DAILY 04/18/21 [History Last Taken 04/30/21] clopidogrel 75 mg PO DAILY 04/18/21 [History Last Taken 04/30/21] ezetimibe [Zetia] 10 mg PO DAILY 04/18/21 [History Last Taken 04/30/21] famotidine 20 mg PO BID 04/18/21 [History Last Taken 04/30/21] furosemide 40 mg PO DAILY 04/18/21 [History Last Taken 04/30/21] glimepiride 4 mg PO BID 04/18/21 [History Last Taken 04/30/21] hydrocodone-acetaminophen 1 tab PO Q8 PRN 04/18/21 [History Last Taken 04/28/21] metoprolol tartrate 25 mg PO BID 04/18/21 [History Last Taken 04/30/21] nabumetone 750 mg PO BID 04/18/21 [History Last Taken 04/30/21] nitroglycerin 0.4 mg SUBLINGUAL X1 PRN 04/18/21 [History Last Taken Unknown] potassium chloride 10 meq PO BID 04/18/21 [History Last Taken 04/30/21] sitagliptin [Januvia] 100 mg PO DAILY 04/18/21 [History Last Taken 04/30/21] spironolactone 25 mg PO DAILY 04/18/21 [History Last Taken 04/30/21] citalopram 10 mg PO DAILY 05/01/21 [History Last Taken 04/30/21] ondansetron [Zofran ODT] 4 mg PO Q6H PRN 05/01/21 [History Last Taken 04/30/21] oxycodone-acetaminophen 1 tab PO Q4H PRN 05/01/21 [History Last Taken 05/01/21] rosuvastatin 40 mg PO DAILY 05/01/21 [History Last Taken 04/30/21] sulfamethoxazole-trimethoprim [Bactrim DS] 1 tab PO BID 05/01/21 [History Last Taken 04/30/21] Allergy/AdvReac Type Severity Reaction Status Date / Time ciprofloxacin [From Cipro] Allergy Itching Verified 05/01/21 10:59 Penicillins [PCN] Allergy Hives Verified 05/01/21 10:59 Family History Mother Heart disease Father Heart disease Surgical History History of coronary artery stent placement Presence of combination internal cardiac defibrillator (ICD) and pacemaker Social History leisure activities: other Smoking Status: Current every day smoker tobacco type: cigarettes alcohol intake: current alcohol intake frequency: other substance use type: does not use Results Lab / Micro Data Result Diagrams: 05/01/21 11:50 05/01/21 11:50 Charges/Coding Addendum Addendum: Patient was seen and examined today independently of Maricruz Lopes, she came to the emergency room today with complaints of shortness of breath, she has a history of atherosclerotic heart disease, she is a daily smoker of a pack of cigarettes a day. Work-up in the emergency room included a chest x-ray which showed evidence of vascular congestion. On examination she appeared older than her stated age, she does not appear to be in any distress. Vital signs as documented. Skin warm and dry and without overt rashes. Neck without JVD, thyroid appears normal, trachea is midline, neck is supple. Lungs-bilateral expiratory wheezing was noted scattered throughout both lungs, decreased air movement was noted. Heart exam notable for regular rhythm, normal sounds and absence of murmurs, rubs or gallops. Abdomen unremarkable and without evidence of organomegaly, masses, or abdominal aortic enlargement, bowel sounds are present in all 4 quadrants, no abdominal tenderness was noted. Extremities nonedematous, no cyanosis was noted, no clubbing was noted. Neuro: Cranial nerves II through XII are grossly intact, no focal motor deficits were noted, sensation to light touch and pinprick is intact, motor exam 5/5 throughout. Psych: Patient is alert and oriented x3, she does not appear anxious or depressed, she does not appear agitated. Patient will be treated for acute congestive heart failure, echocardiogram will be performed tomorrow, she will also be treated for exacerbation of COPD and receive IV Solu-Medrol and aggressive aerosol treatments. I have reviewed Maricruz Lopes's history and physical including her medical assessment and plan of care and endorse it. Visit Charges Inpatient E&M: 10814 Init Hosp L3
--- NOTE | 2021-05-01 14:59 | ECHOCS_ITS ---
Reason For Study: CHF Procedure This was a 2D Doppler, Color Flow transthoracic echocardiogram. The study was technically difficult. Contrast injection was performed. Exam performed portable in patient room. Left Ventricle Moderately dilated left ventricle. Mild segmental systolic dysfunction (see wall motion). The estimated ejection fraction is 50 %. No evidence for diastolic dysfunction. Infero-Basal: Hypokinetic. Mid-Lateral : Hypokinetic. Mid-Posterior: Hypokinetic. Mid-Inferior: Akinetic. Mid- inferoseptal : Hypokinetic. Mid-anteroseptal : Hypokinetic. Inferior Yale : Akinetic. Septal Yale : Hypokinetic. Right Ventricle Normal RV size. ICD or pacer leads identified within the right ventricle. Normal systolic function. Atria The left atrium is mildly enlarged. Normal right atrium. ICD or pacer leads identified within the right atrium. No doppler evidence for ASD. Mitral Valve There is no mitral annular calcification. Normal mitral valve. Mild (1+) mitral valve insufficiency. Tricuspid Valve The tricuspid valve is not well visualized. Trivial tricuspid valve insufficiency. Right ventricular systolic pressure estimated to be 19 mmHg. Aortic Valve Trisinus/trileaflet aortic valve. Normal aortic valve. Pulmonic Valve The pulmonic valve is not well visualized. Great Vessels The aortic root is not well visualized. Pericardium/Pleural No pericardial effusion. Medication Diluted definity 3ml given slow IV push to enhance endocardial definition. MMode/2D Measurements & Calculations LVIDd: 6.2 cm IVSd: 0.80 cm LA dimension: 4.4 cm LVIDs: 4.5 cm LVPWd: 0.83 cm FS: 28.5 % LAV(MOD-bp): 48.5 ml LA A4 area: 17.3 cm2 LAV(MOD-bp) Indexed: 23.7 ml/m2 LAV(MOD-sp2): 52.1 ml LAV(MOD-sp4): 45.1 ml Time Measurements MV dec time: 0.20 sec Doppler Measurements & Calculations MV E max jake: 112.8 cm/sec Lat Peak E' Jake: 9.7 cm/sec Med Peak E' Jake: 8.3 cm/sec MV A max jake: 95.6 cm/sec E/E' lat: 11.6 E/E' med: 13.7 MV E/A: 1.2 MV V2 max: 144.5 cm/sec MV P1/2t max jake: 145.4 cm/sec Ao V2 max: 185.9 cm/sec MV max P.4 mmHg MV P1/2t: 80.7 msec Ao max P.8 mmHg MV V2 mean: 79.8 cm/sec MV dec slope: 527.6 cm/sec2 MV mean P.1 mmHg MV V2 VTI: 38.0 cm MVA(P1/2t): 2.7 cm2 LV V1 max: 119.7 cm/sec PA V2 max: 120.4 cm/sec TR max jake: 202.6 cm/sec LV V1 max P.7 mmHg TR max P.4 mmHg ECHO/Echo Complete W/ Contrast Interpretation Summary The study was technically difficult. Contrast injection was performed. Moderately dilated left ventricle. Mild segmental systolic dysfunction (see wall motion). The estimated ejection fraction is 50 %. Mild (1+) mitral valve insufficiency. Trivial tricuspid valve insufficiency. Right ventricular systolic pressure estimated to be 19 mmHg. No evidence for diastolic dysfunction. ICD or pacer leads identified within the right atrium ICD or pacer leads identified within the right ventricle. Ordering Physician: Maricruz Lopes Referring Physician: Rome Shannon Performed By: Saul Clark RCS
[2021-05-01 16:05] LABS: Troponin-I HS 20.8 pg/mL (3.0-53.7)
[2021-05-01 17:38] LABS: Troponin-I HS 17.3 pg/mL (3.0-53.7)
[2021-05-01] MEDS: Smz/Tmp Ds Tablet 1 TABLET PO (17:57)
[2021-05-01] MEDS: Insulin Lispro 100 UNIT/ML INSULN.PEN SC ×2 (17:57→22:29)
[2021-05-01 18:11] LABS: Bedside Glucose 168 mg/dL (70-110)
[2021-05-01] MEDS: Acetaminophen 325 MG Tablet 650 MG PO (18:45)
[2021-05-01 21:45] LABS: Troponin-I HS 16.9 pg/mL (3.0-53.7)
[2021-05-01] MEDS: Atorvastatin Calcium 80 MG Tablet PO (22:28)
[2021-05-01] MEDS: 0.9% Saline Lock 10 ML Syringe IV (22:28)
[2021-05-01] MEDS: guaiFENesin 1,200 MG Tablet 1200 MG PO (22:28)
[2021-05-01] MEDS: Metoprolol Tartrate 25 MG Tablet PO (22:29)
[2021-05-01 22:45] LABS: Bedside Glucose 170 mg/dL (70-110)
[2021-05-02] VITALS (11 sets, daily range): BP systolic 126–142; BP diastolic 54–67; PULSE 58–85; RESP 18–20; TEMP 36.8–37; O2SAT 91–96
[2021-05-02] MEDS: Ipratropium/Albuterol Sulfate 3 ML AMPUL.NEB INHALATION ×4 (01:07→15:06)
[2021-05-02] MEDS: Furosemide 40 MG/4 ML Vial IV ×2 (05:35→16:38)
[2021-05-02] MEDS: 0.9% Saline Lock 10 ML Syringe IV ×2 (05:35→16:38)
[2021-05-02 05:50] LABS: Absolute Lymphocyte Count 0.89 X10^3/uL (0.83-4.51); Absolute Neutrophil Count 7.4 X10^3/uL (2.0-7.7); Basophil# 0.02 X10^3/uL; Basophil% 0.2 % (0-1); Hematocrit 39.9 % (37-47); Hemoglobin 12.8 g/dL (12.0-15.0); Lymphocyte # 0.89 X10^3/ul (0.83-4.51); Lymphocyte % 10.2 % (19-41); Mean Corp Hgb Conc 32.1 g/dL (32-36); Mean Corpuscular Volume 96.6 fL (81-99); Monocyte# 0.34 X10^3/uL; Monocyte% 3.9 % (0-10); NRBC Flagged by Analyzer 0 % (0-5); Neutrophil # 7.36 X10^3/uL (2.7-7.7); Neutrophil % 84.8 % (47-70); Platelet Count 125 K/mm3 (150-450); RBC Distribution Width CV 12.8 % (11.6-14.6); RBC Distribution Width SD 45.9 fl (35.1-43.9); Red Blood Count 4.13 M/mm3 (4.2-5.4); White Blood Count 8.7 K/mm3 (4.4-11.0)
[2021-05-02 06:09] LABS: Anion Gap 5 (5-15); BUN 13 mg/dL (7-18); BUN/Creat Ratio 18.8 RATIO (10-20); Calcium,Total 8.9 mg/dL (8.5-10.1); Chloride 98 mmol/L (98-107); Creatinine, Serum 0.69 mg/dL (0.55-1.02); EST Glomerular Filtration Rate 91 mL/min (>60); Est Glom Filt Rate - Afr Amer 111 mL/min (>60); Estimated Creatinine Clearance 63.79 ml/min; Glucose 235 mg/dL (74-106); Potassium 3.5 mmol/L (3.5-5.1); Sodium Level 135 mmol/L (136-145)
[2021-05-02] MEDS: Insulin Lispro 100 UNIT/ML INSULN.PEN SC ×3 (06:45→16:38)
[2021-05-02 07:00] LABS: Bedside Glucose 277 mg/dL (70-110)
[2021-05-02] MEDS: Glimepiride 4 MG Tablet PO (09:25)
[2021-05-02] MEDS: Smz/Tmp Ds Tablet 1 TABLET PO ×2 (09:25→16:38)
[2021-05-02] MEDS: Citalopram 20 MG Tablet PO (09:26)
[2021-05-02] MEDS: Metoprolol Tartrate 25 MG Tablet PO (09:26)
[2021-05-02] MEDS: Spironolactone 25 MG Tablet PO (09:26)
[2021-05-02] MEDS: guaiFENesin 1,200 MG Tablet 1200 MG PO (09:27)
[2021-05-02] MEDS: Enoxaparin 40 MG/0.4 ML Syringe SC (09:27)
[2021-05-02] MEDS: Ezetimibe 10 MG Tablet PO (09:27)
[2021-05-02] MEDS: Clopidogrel Bisulfate 75 MG Tablet PO (09:27)
[2021-05-02] MEDS: Famotidine 20 MG Tablet PO (09:27)
[2021-05-02 11:31] LABS: Bedside Glucose 325 mg/dL (70-110)
--- NOTE | 2021-05-02 13:03 | PN.HOSP_ITS ---
Documented by User: Maricruz Lopes NP, WORKFORCE MANAGEMENT MANAGER-C 05/02/21 13:11 Hospitalist Note Subjective: Patient seen and examined. Reports significant improvement in breathing. Cough and wheezing improved as well. Denies further fever. Denies other symptoms or complaints. Objective: Labs, vital signs and I&O reviewed. Unremarkable with the exception of elevated glucose in the context of type 2 diabetes mellitus. Echocardiogram pending. Physical Exam: Const alert, oriented x3 and no apparent distress Orientation / Consciousness: awake, oriented to person, oriented to place and oriented to time HEENT normocephalic and moist oral mucous membranes Eyes PERRL, EOMs intact bilaterally and conjunctivae normal Neck no lymphadenopathy Resp Auscultation: wheezes and diminished lung sounds Cardio regular rate, regular rhythm and no murmurs Peripheral Pulses: pulses 2+ throughout GI normal to inspection, nondistended, normoactive bowel sounds, non-tender and non-distended Extremity normal to inspection Extremity Narrative: Left hand post-op dressing intact Skin no rashes or lesions noted Lesions: no lesions Rashes: no rashes Trauma: no lacerations or abrasions Neuro CN's II-XII intact bilaterally, no focal motor deficits, no sensory deficits noted and deep tendon reflexes 2+ bilaterally Psych mental status grossly normal and affect normal Assessment and plan: 1. Shortness of breath, secondary to acute heart failure and exacerbation of C OPD-oxygen stable on room air. Treatment per below. 2. Acute heart failure, unknown subtype-patient reports a history of heart failure with no recent echo. Does not know EF. Chest x-ray consistent with congestion. BNP 233. IV Lasix. Strict I&O. Daily weight. Echo pending. 3. COPD with exacerbation-respiratory panel negative. Wheezing improved. IV Solu-Medrol. Albuterol and DuoNeb aerosols. Plan for transition to prednisone in a.m. 4. CAD with history of stents- follows with Dr. Millan, cardiology in [place] 5. S/P AICD- patient states secondary to arrhythmia. 6. Type 2 diabetes atmhawnq-Fnis-Outpi with sliding scale insulin. Continue glimepiride. 7. Chronic back pain-as needed pain regimen. 8. Recent left index tendon repair surgery secondary to injury-on Bactrim po stoperatively. 9. Depression-on citalopram. 10. Tobacco dependence-current pack per day smoker. Encouraged cessation. Nicotine replacement patch. 11. Morbid obesity-encouraged diet and lifestyle modifications. 12. TREVON- on cpap. DVT prophylaxis-Lovenox subcu This patient was seen by EMIGDIO Catherine under the supervision of Dr. Calderón
--- NOTE | 2021-05-02 14:41 | CHAPLAIN ---
Type of Pastoral Visit _x__ Initial Visit ___ Follow-up Visit ___ On-call Visit ___ General Patient Visit ___ Spiritual Assessment ___ Family Conference ___ Bereavement ___ Rapid Response ___ Code Blue ___ Other (describe below) Pastoral Care Referral From _x__ Patient ___ Family ___ Nurse ___ Physician ___ Product Steward ___ Bankruptcy Assistant ___ Other (describe below) Sacrament/Intervention _x__ Active listening ___ Anointing ___ Spiritism ___ Bereavement ___ Communion ___ Heather exploration ___ ___ Life review ___ Prayer ___ Reconciliation ___ Sacrament of Sick ___ Supportive presence ___ Wedding ___ Other (describe below) Pastoral Comments
[2021-05-02 16:45] LABS: Bedside Glucose 277 mg/dL (70-110)
--- NOTE | 2021-05-02 17:14 | PCM.DC ---
Discharge Instructions Diet Discharge Diet: Low fat / Low cholesterol and 2000 mg Sodium Diet Activity Discharge Activity: Return to Normal Activity Dressing / Incision Call your doctor if you observe: Shortness of breath, Dizziness and Chest pain Follow Up Care Test Results: Test results from this visit will be discussed in further detail at your follow-up appointment, if applicable. Discharge Plan Admission Admit Date/Time: 05/01/21 18:31 Primary Reason for Your Visit: COPD, CHF Attending Provider: Pamela Calderón Primary Care Provider: Rome Shannon Discharge Orders/Prescriptions Prescriptions: New prednisone 10 mg tablet See Taper mg PO DAILY Qty: 30 RF: 0 albuterol sulfate [ProAir HFA] 90 mcg/actuation HFA aerosol inhaler 2 puff inhalation Q6H PRN (Reason: shortness of breath or wheezing) Qty: 6.7 RF: 0 Continued nabumetone 750 mg tablet 750 mg PO BID RF: 0 citalopram 20 mg tablet 20 mg PO DAILY RF: 0 hydrocodone-acetaminophen 7.5-325 mg tablet 1 tab PO Q8 PRN (Reason: Pain) RF: 0 nitroglycerin 0.4 mg tablet, sublingual 0.4 mg sublingual X1 PRN (Reason: Chest Pain) RF: 0 sulfamethoxazole-trimethoprim [Bactrim DS] 800-160 mg Tablet 1 tab PO BID RF: 0 oxycodone-acetaminophen 5-325 mg tablet 1 tab PO Q4H PRN (Reason: Pain) RF: 0 ondansetron 4 mg Tablet,Disintegrating 4 mg PO Q6H PRN (Reason: nausea) RF: 0 citalopram 10 mg Tablet 10 mg PO DAILY RF: 0 No Action furosemide 40 mg tablet 40 mg PO DAILY RF: 0 potassium chloride 10 mEq tablet extended release 10 meq PO BID RF: 0 clopidogrel 75 mg tablet 75 mg PO DAILY RF: 0 spironolactone 25 mg tablet 25 mg PO DAILY RF: 0 famotidine 20 mg tablet 20 mg PO BID RF: 0 glimepiride 4 mg tablet 4 mg PO BID RF: 0 ezetimibe [Zetia] 10 mg tablet 10 mg PO DAILY RF: 0 metoprolol tartrate 25 mg tablet 25 mg PO BID RF: 0 Januvia 100 mg tablet 100 mg PO DAILY RF: 0 rosuvastatin 40 mg tablet 40 mg PO DAILY RF: 0 Referrals / Follow Up: Kvng Millan [Other] - Within 2 Weeks Rome Shannon DO [Primary Care Provider] - In 1 Day Disposition Disposition (needs filled in before D/C Order can be placed): Home, Self Care
--- NOTE | 2021-05-02 17:32 | DS.PCM_ITS ---
Documented by User: Maricruz Lopes NP, GIS GEOGRAPHER-C 05/02/21 17:44 Providers Date of Admission: 05/01/21 Date of Discharge: 05/02/21 Primary Care Physician: Dr. Rome Shannon DO Reason For Visit: CHF, COPD Diagnosis Discharge Diagnosis (1) COPD (chronic obstructive pulmonary disease): Status: Chronic Code(s): J44.9 - Chronic obstructive pulmonary disease, unspecified Medications at Discharge Home Medications citalopram 20 mg PO DAILY 04/18/21 clopidogrel 75 mg PO DAILY 04/18/21 ezetimibe [Zetia] 10 mg PO DAILY 04/18/21 famotidine 20 mg PO BID 04/18/21 furosemide 40 mg PO DAILY 04/18/21 glimepiride 4 mg PO BID 04/18/21 hydrocodone-acetaminophen 1 tab PO Q8 PRN 04/18/21 metoprolol tartrate 25 mg PO BID 04/18/21 nabumetone 750 mg PO BID 04/18/21 nitroglycerin 0.4 mg SUBLINGUAL X1 PRN 04/18/21 potassium chloride 10 meq PO BID 04/18/21 sitagliptin [Januvia] 100 mg PO DAILY 04/18/21 spironolactone 25 mg PO DAILY 04/18/21 citalopram 10 mg PO DAILY 05/01/21 ondansetron 4 mg PO Q6H PRN 05/01/21 oxycodone-acetaminophen 1 tab PO Q4H PRN 05/01/21 rosuvastatin 40 mg PO DAILY 05/01/21 sulfamethoxazole-trimethoprim [Bactrim DS] 1 tab PO BID 05/01/21 albuterol sulfate [ProAir HFA] 2 puff INHALATION Q6H PRN #6.7 g 05/02/21 prednisone See Taper PO DAILY #30 tab 05/02/21 Hospital Course Operations None Procedures 2-D Echocardiogram Summary of Care Provided Minutes Spent on Discharge: 35 Hospital Course: Patient is a 60-year-old female admitted 05/01/2021 due to shortness of breath. 1. Shortness of breath, secondary to acute heart failure and exacerbation of COPD-oxygen stable on room air. Walking pulse ox completed prior to discharge and patient did not require supplemental oxygen. 2. Acute heart failure with mildly reduced EF- Chest x-ray consistent with congestion. BNP 233. Echocardiogram demonstrated an EF of 50%, mild mitral valve insufficiency. Continue home Lasix, spironolactone regimen. Follow-up with cardiology in 1 week. 3. COPD with exacerbation-respiratory panel negative. Wheezing improved. IV Solu-Medrol during admission. Discharged on prednisone taper. Albuterol inhaler for as needed use. Recommend initiation of maintenance regimen by PCP, patient states she has not been on these in the past due to difficulty affording them. May need office case management to look at affordable options. 4. CAD with history of stents- follows with Dr. Millan, cardiology in [place] 5. S/P AICD- patient states secondary to arrhythmia. 6. Type 2 diabetes mellitus-Continue home insulin, glimepiride regimen. 7. Chronic back pain-as needed pain regimen. 8. Recent left index tendon repair surgery secondary to injury-on Bactrim postoperatively. 9. Depression-on citalopram. 10. Tobacco dependence-current pack per day smoker. Encouraged cessation. 11. Morbid obesity-encouraged diet and lifestyle modifications. 12. TREVON- on cpap. Physical Exam: Const alert, oriented x3 and no apparent distress Orientation / Consciousness: awake, oriented to person, oriented to place and oriented to time HEENT normocephalic and moist oral mucous membranes Eyes PERRL, EOMs intact bilaterally and conjunctivae normal Neck no lymphadenopathy Resp Auscultation: wheezes and diminished lung sounds Cardio regular rate, regular rhythm and no murmurs Peripheral Pulses: pulses 2+ throughout GI normal to inspection, nondistended, normoactive bowel sounds, non-tender and non-distended Extremity normal to inspection Extremity Narrative: Left hand post-op dressing intact Skin no rashes or lesions noted Lesions: no lesions Rashes: no rashes Trauma: no lacerations or abrasions Neuro CN's II-XII intact bilaterally, no focal motor deficits, no sensory deficits noted and deep tendon reflexes 2+ bilaterally Psych mental status grossly normal and affect normal Patient seen and examined prior to discharge. Physical assessment as noted above. Patient is stable for discharge with follow up recommendations as noted above. This patient was seen by EMIGDIO Catherine under the supervision of Dr. Calderón. Weight / BMI Weight Weight: 242 lb 1.081 oz Body Mass Index (BMI) 47.0 ABG / Lab / Microbiology Data Result Diagrams: 05/02/21 05:10 07/05/21 05:10 Laboratory: Laboratory Results - last 24 hr 05/01/21 05/01/21 05/01/21 17:12 17:54 21:11 WBC RBC Hgb Hct MCV MCH MCHC RDW Std Deviation RDW Coeff of Jyoti Plt Count MPV Immature Gran % (Auto) Neut % (Auto) Lymph % (Auto) Fisher % (Auto) Eos % (Auto) Baso % (Auto) Absolute Neuts (auto) Absolute Lymphs (auto) Nucleated RBC % Sodium Potassium Chloride Carbon Dioxide Anion Gap BUN Creatinine Estim Creat Clear Calc Est GFR (MDRD) Af Amer Est GFR (MDRD) Non-Af BUN/Creatinine Ratio Glucose Calcium Troponin I High Sens 17.3 16.9 POC Glucose 168 H 05/01/21 05/02/21 05/02/21 22:26 05:10 05:10 WBC 8.7 RBC 4.13 L Hgb 12.8 Hct 39.9 MCV 96.6 MCH 31.0 MCHC 32.1 RDW Std Deviation 45.9 H RDW Coeff of Jyoti 12.8 Plt Count 125 L MPV 12.0 Immature Gran % (Auto) 0.900 Neut % (Auto) 84.8 H Lymph % (Auto) 10.2 L Fisher % (Auto) 3.9 Eos % (Auto) 0.0 Baso % (Auto) 0.2 Absolute Neuts (auto) 7.4 Absolute Lymphs (auto) 0.89 Nucleated RBC % 0 Sodium 135 L Potassium 3.5 Chloride 98 Carbon Dioxide 32.0 Anion Gap 5 BUN 13 Creatinine 0.69 Estim Creat Clear Calc 63.79 Est GFR (MDRD) Af Amer 111 Est GFR (MDRD) Non-Af 91 BUN/Creatinine Ratio 18.8 Glucose 235 H Calcium 8.9 Troponin I High Sens POC Glucose 170 H 05/02/21 05/02/21 05/02/21 06:44 11:28 16:36 WBC RBC Hgb Hct MCV MCH MCHC RDW Std Deviation RDW Coeff of Jyoti Plt Count MPV Immature Gran % (Auto) Neut % (Auto) Lymph % (Auto) Fisher % (Auto) Eos % (Auto) Baso % (Auto) Absolute Neuts (auto) Absolute Lymphs (auto) Nucleated RBC % Sodium Potassium Chloride Carbon Dioxide Anion Gap BUN Creatinine Estim Creat Clear Calc Est GFR (MDRD) Af Amer Est GFR (MDRD) Non-Af BUN/Creatinine Ratio Glucose Calcium Troponin I High Sens POC Glucose 277 H 325 H 277 H Microbiology: Microbiology 05/01/21 15:30 Respiratory Panel (PCR) - Final Mucosa - Nasopharyngeal Microbiology 05/01/21 15:30 Mucosa - Nasopharyngeal Respiratory Panel (PCR) - Final 05/01/21 11:45 Mucosa - Nose SARS-CoV-2 Antigen (Rapid) - Final Radiography Diagnostic Testing: Radiology Impression Echocardiogram 05/01/21 14:59 Interpretation Summary The study was technically difficult. Contrast injection was performed. Moderately dilated left ventricle. Mild segmental systolic dysfunction (see wall motion). The estimated ejection fraction is 50 %. Mild (1+) mitral valve insufficiency. Trivial tricuspid valve insufficiency. Right ventricular systolic pressure estimated to be 19 mmHg. No evidence for diastolic dysfunction. ICD or pacer leads identified within the right atrium ICD or pacer leads identified within the right ventricle. ___ Ordering Physician: Maricruz Lopes Referring Physician: Rome Shannon Performed By: Saul Clark RCS D/C Instructions Discharge Diet: Low fat / Low cholesterol and 2000 mg Sodium Diet Call your doctor if you observe: Shortness of breath, Dizziness and Chest pain Meaningful Use Info Meaningful Use Diagnoses (Choose all that apply): CHF CHF YON/ARB ordered at discharge?: No Reason YON/ARB not ordered?: Not indicated Documented LVEF (%): 50 Discharge Plan Admission Admit Date/Time: 05/01/21 18:31 Primary Reason for Your Visit: COPD, CHF Attending Provider: Pamela Calderón Primary Care Provider: Rome Shannon Discharge Orders/Prescriptions Prescriptions: New prednisone 10 mg tablet See Taper mg PO DAILY Qty: 30 RF: 0 albuterol sulfate [ProAir HFA] 90 mcg/actuation HFA aerosol inhaler 2 puff inhalation Q6H PRN (Reason: shortness of breath or wheezing) Qty: 6.7 RF: 0 Continued nabumetone 750 mg tablet 750 mg PO BID RF: 0 citalopram 20 mg tablet 20 mg PO DAILY RF: 0 hydrocodone-acetaminophen 7.5-325 mg tablet 1 tab PO Q8 PRN (Reason: Pain) RF: 0 nitroglycerin 0.4 mg tablet, sublingual 0.4 mg sublingual X1 PRN (Reason: Chest Pain) RF: 0 sulfamethoxazole-trimethoprim [Bactrim DS] 800-160 mg Tablet 1 tab PO BID RF: 0 oxycodone-acetaminophen 5-325 mg tablet 1 tab PO Q4H PRN (Reason: Pain) RF: 0 ondansetron 4 mg Tablet,Disintegrating 4 mg PO Q6H PRN (Reason: nausea) RF: 0 citalopram 10 mg Tablet 10 mg PO DAILY RF: 0 No Action furosemide 40 mg tablet 40 mg PO DAILY RF: 0 potassium chloride 10 mEq tablet extended release 10 meq PO BID RF: 0 clopidogrel 75 mg tablet 75 mg PO DAILY RF: 0 spironolactone 25 mg tablet 25 mg PO DAILY RF: 0 famotidine 20 mg tablet 20 mg PO BID RF: 0 glimepiride 4 mg tablet 4 mg PO BID RF: 0 ezetimibe [Zetia] 10 mg tablet 10 mg PO DAILY RF: 0 metoprolol tartrate 25 mg tablet 25 mg PO BID RF: 0 Januvia 100 mg tablet 100 mg PO DAILY RF: 0 rosuvastatin 40 mg tablet 40 mg PO DAILY RF: 0 Referrals / Follow Up: Kvng Millan [Other] - Within 2 Weeks Rome Shannon DO [Primary Care Provider] - In 1 Day Disposition Disposition (needs filled in before D/C Order can be placed): Home, Self Care Documented by User: Dr. Pamela Calderón MD 05/02/21 18:08 Providers Date of Admission: 05/01/21 Reason For Visit: CHF, COPD Medications at Discharge Home Medications citalopram 20 mg PO DAILY 04/18/21 clopidogrel 75 mg PO DAILY 04/18/21 ezetimibe [Zetia] 10 mg PO DAILY 04/18/21 famotidine 20 mg PO BID 04/18/21 furosemide 40 mg PO DAILY 04/18/21 glimepiride 4 mg PO BID 04/18/21 hydrocodone-acetaminophen 1 tab PO Q8 PRN 04/18/21 metoprolol tartrate 25 mg PO BID 04/18/21 nabumetone 750 mg PO BID 04/18/21 nitroglycerin 0.4 mg SUBLINGUAL X1 PRN 04/18/21 potassium chloride 10 meq PO BID 04/18/21 sitagliptin [Januvia] 100 mg PO DAILY 04/18/21 spironolactone 25 mg PO DAILY 04/18/21 citalopram 10 mg PO DAILY 05/01/21 ondansetron 4 mg PO Q6H PRN 05/01/21 oxycodone-acetaminophen 1 tab PO Q4H PRN 05/01/21 rosuvastatin 40 mg PO DAILY 05/01/21 sulfamethoxazole-trimethoprim [Bactrim DS] 1 tab PO BID 05/01/21 albuterol sulfate [ProAir HFA] 2 puff INHALATION Q6H PRN #6.7 g 05/02/21 prednisone See Taper PO DAILY #30 tab 05/02/21 ABG / Lab / Microbiology Data Result Diagrams: 05/02/21 05:10 05/02/21 05:10 Discharge Plan Admission Admit Date/Time: 05/01/21 18:31 Primary Reason for Your Visit: COPD, CHF Attending Provider: Pamela Calderón Primary Care Provider: Rome Shannon Discharge Orders/Prescriptions Prescriptions: New prednisone 10 mg tablet See Taper mg PO DAILY Qty: 30 RF: 0 albuterol sulfate [ProAir HFA] 90 mcg/actuation HFA aerosol inhaler 2 puff inhalation Q6H PRN (Reason: shortness of breath or wheezing) Qty: 6.7 RF: 0 Continued nabumetone 750 mg tablet 750 mg PO BID RF: 0 citalopram 20 mg tablet 20 mg PO DAILY RF: 0 hydrocodone-acetaminophen 7.5-325 mg tablet 1 tab PO Q8 PRN (Reason: Pain) RF: 0 nitroglycerin 0.4 mg tablet, sublingual 0.4 mg sublingual X1 PRN (Reason: Chest Pain) RF: 0 sulfamethoxazole-trimethoprim [Bactrim DS] 800-160 mg Tablet 1 tab PO BID RF: 0 oxycodone-acetaminophen 5-325 mg tablet 1 tab PO Q4H PRN (Reason: Pain) RF: 0 ondansetron 4 mg Tablet,Disintegrating 4 mg PO Q6H PRN (Reason: nausea) RF: 0 citalopram 10 mg Tablet 10 mg PO DAILY RF: 0 No Action furosemide 40 mg tablet 40 mg PO DAILY RF: 0 potassium chloride 10 mEq tablet extended release 10 meq PO BID RF: 0 clopidogrel 75 mg tablet 75 mg PO DAILY RF: 0 spironolactone 25 mg tablet 25 mg PO DAILY RF: 0 famotidine 20 mg tablet 20 mg PO BID RF: 0 glimepiride 4 mg tablet 4 mg PO BID RF: 0 ezetimibe [Zetia] 10 mg tablet 10 mg PO DAILY RF: 0 metoprolol tartrate 25 mg tablet 25 mg PO BID RF: 0 Januvia 100 mg tablet 100 mg PO DAILY RF: 0 rosuvastatin 40 mg tablet 40 mg PO DAILY RF: 0 Referrals / Follow Up: Kvng Millan [Other] - Within 2 Weeks Rome Shannon DO [Primary Care Provider] - In 1 Day Disposition Disposition (needs filled in before D/C Order can be placed): Home, Self Care Charges/Coding Addendum Addendum: Patient seen by Maricruz BEAL under my supervision Patient is a 60-year-old female with a past medical history as outlined was admitted through the ED on 05/01/2021 with a complaint of shortness of breath which started in the early hours of with associated productive cough and low- grade fever. She had had an injury of her left index finger and had a bandage on her left finger and had had surgery for it on 04/29/2021. She was placed on Bactrim after the surgery. She was admitted and managed for acute exacerbation of heart failure with unknown EF. Chest x-ray showed evidence of vascular congestion and BNP was 233. She was diuresed with IV Lasix. She was also managed for COPD exacerbation. Patient shortness of breath resolved with Lasix and breathing treatment and she felt much better. 2D echo done showed EF of 50% and mild mitral valve insufficiency. She was discharged home on 05/02/2021 with a prescription for p.o. Lasix and spironolactone and also with a prednisone taper. She is to follow-up with the orthopedic surgeons for review of her recent left index tendon repair as needed. Patient was seen and examined prior to discharge. She felt well and had no complaints and wanted to be discharged home. Review of systems otherwise negative. Labs and vitals reviewed. Medication reviewed and reconciled. O/E: Const alert, oriented x3 and no apparent distress Orientation / Consciousness: awake, oriented to person, oriented to place and oriented to time HEENT normocephalic and moist oral mucous membranes Eyes PERRL, EOMs intact bilaterally and conjunctivae normal Neck no lymphadenopathy Resp Auscultation: wheezes and diminished lung sounds Cardio regular rate, regular rhythm and no murmurs Peripheral Pulses: pulses 2+ throughout GI normal to inspection, nondistended, normoactive bowel sounds, non-tender and non-distended Extremity normal to inspection Extremity Narrative: Left hand post-op dressing intact Skin no rashes or lesions noted Lesions: no lesions Neuro CN's II-XII intact bilaterally, no focal motor deficits, Psych mental status grossly normal and affect normal Plan is for discharge home as above. Rest as per EMIGDIO Catherine's note which I have reviewed and endorsed. Visit Charges Inpatient E&M: 10676 Disch Hosp
[2021-05-03 12:16] LABS: Pathologist Review Reviewed
== END 2021-05-02 17:20 | disposition home or self-care (01) | DRG 291 ==
LOC: ED 11:38 → PCU 14:47
PROVIDERS: Nurse Practitioner Family; Admitting Provider Internal Medicine; Emergency Provider Emergency Medicine; PCP Family Medicine; Visit Provider Student in an Organized Health Care Education/Training Program
DX: I11.0 Hypertensive heart disease with heart failure (principal); I50.21 Acute systolic (congestive) heart failure; J44.1 Chronic obstructive pulmonary disease with (acute) exacerbation; Z68.42 Body mass index [BMI] 45.0-49.9, adult; I25.10 Atherosclerotic heart disease of native coronary artery without angina pectoris; E11.9 Type 2 diabetes mellitus without complications; I25.2 Old myocardial infarction; F32.9 Major depressive disorder, single episode, unspecified; F17.210 Nicotine dependence, cigarettes, uncomplicated; G89.29 Other chronic pain; E66.01 Morbid (severe) obesity due to excess calories; G47.33 Obstructive sleep apnea (adult) (pediatric); I34.0 Nonrheumatic mitral (valve) insufficiency; Z79.899 Other long term (current) drug therapy; Z79.02 Long term (current) use of antithrombotics/antiplatelets; Z79.84 Long term (current) use of oral hypoglycemic drugs; Z95.810 Presence of automatic (implantable) cardiac defibrillator; Z95.5 Presence of coronary angioplasty implant and graft
CPT/HCPCS: 36415; 71045; 80048; 82962; 83880; 84484; 85025; 87426; 87633; 93005; 93306; 94640; 96372; 96374; 96375; 96376; 97166; 97802; 99218; 99285; Q9957; A4216; C8929; G0378; J1940; J3490

== ENCOUNTER → 2022-03-24 | Outpatient (CLI) | payer MEDICARE, SELFPAY ==
--- NOTE | 2022-03-24 11:07 | ECHOCS_ITS ---
Reason For Study: CMP Procedure This was a 2D Doppler, Color Flow transthoracic echocardiogram. Myocardial strain analysis was performed in this exam to aid in the assessment of cardiac function. The study was technically difficult. Contrast injection was performed. Exam performed in department. Left Ventricle Normal LV size. Moderately severe segmental systolic dysfunction (see wall motion). The estimated ejection fraction is 35 %. Infero-Basal: Akinetic. Mid-Inferior: Akinetic. Inferior Winder : Akinetic. Anterio-Basal: Normal. Mid-Anterior : Normal. The rest of the wall segments are hypokinetic. Right Ventricle Normal RV size. ICD or pacer leads identified within the right ventricle. Normal systolic function. Atria Normal left atrium. Normal right atrium. Mitral Valve Normal mitral valve. Mild-Moderate (1-2+) eccentric mitral valve insufficiency. Tricuspid Valve Normal tricuspid valve. Mild (1+) tricuspid valve insufficiency. Pulmonary artery systolic pressure is 30 mmHg. Great Vessels Normal aortic root. The pulmonary artery is normal size. Normal inferior vena cava. Pericardium/Pleural No pericardial effusion. Medication 22 gauge I.V. with prn adaptor inserted into right arm. Diluted definity 2ml given slow IV push to enhance endocardial definition. MMode/2D Measurements & Calculations LVIDd: 5.8 cm IVSd: 1.3 cm LA dimension: 4.3 cm LVIDs: 4.5 cm LVPWd: 1.1 cm RVDd: 3.4 cm FS: 21.8 % LAV(MOD-bp): 60.1 ml LVAd ap4: 44.0 cm2 LVAd ap2: 45.4 cm2 LAV(MOD-bp) Indexed: 29.5 ml/m2 LVLd ap4: 8.9 cm LVLd ap2: 8.6 cm LAV(MOD-sp2): 56.8 ml EDV(MOD-sp4): 181.0 ml EDV(MOD-sp2): 191.8 ml LAV(MOD-sp4): 63.4 ml EDV(sp4-el): 184.1 ml EDV(sp2-el): 202.2 ml LVAs ap4: 32.8 cm2 LVAs ap2: 35.8 cm2 LVLs ap4: 7.4 cm LVLs ap2: 7.8 cm ESV(MOD-sp4): 119.8 ml ESV(MOD-sp2): 130.1 ml ESV(sp4-el): 123.6 ml ESV(sp2-el): 138.4 ml EF(MOD-sp4): 33.8 % EF(MOD-sp2): 32.2 % EF(sp4-el): 32.8 % SV(MOD-sp4): 61.2 ml SV(MOD-sp2): 61.7 ml SV(sp4-el): 60.5 ml LA A4 area: 21.1 cm2 RA A4 area: 15.5 cm2 Time Measurements MV dec time: 0.24 sec Doppler Measurements & Calculations MV E max jake: 84.6 cm/sec Lat Peak E' Jake: 5.9 cm/sec Med Peak E' Jake: 5.5 cm/sec MV A max jake: 62.7 cm/sec E/E' lat: 14.4 E/E' med: 15.4 MV E/A: 1.3 MV V2 max: 113.1 cm/sec MV P1/2t max jake: 113.1 cm/sec Ao V2 max: 131.0 cm/sec MV max P.1 mmHg MV P1/2t: 113.9 msec Ao max P.9 mmHg MV V2 mean: 60.4 cm/sec MV dec slope: 290.8 cm/sec2 MV mean P.7 mmHg MV V2 VTI: 34.8 cm MVA(P1/2t): 1.9 cm2 LV V1 max: 93.6 cm/sec MR max jake: 464.6 cm/sec PA V2 max: 88.4 cm/sec LV V1 max P.5 mmHg MR max P.3 mmHg TR max jake: 255.8 cm/sec TR max P.2 mmHg ECHO/Echo Complete W/ Contrast Interpretation Summary Pulmonary artery systolic pressure is 30 mmHg. Normal LV size. Moderately severe segmental systolic dysfunction (see wall motion). The estimated ejection fraction is 35 %. ICD or pacer leads identified within the right ventricle. Mild-Moderate (1-2+) eccentric mitral valve insufficiency. Contrast injection was performed. The global longitudinal strain = -10.9% (abno rmal). Compared to previous study, the left ventricular systolic function has worsened.. Ordering Physician: ALMAS MASON Referring Physician: Rome Shannon Performed By: Saul Clark RCS
== END | disposition home or self-care (01) ==
PROVIDERS: PCP Family Medicine; Referring Provider Internal Medicine Cardiovascular Disease; Visit Provider Internal Medicine Cardiovascular Disease
DX: I42.0 Dilated cardiomyopathy (principal)
CPT/HCPCS: 93306; Q9957; A4216; C8929